=== PATIENT | male | born 1965 | race Caucasian/White ===

== ENCOUNTER 2017-06-17 11:29 | Observation (INO) | payer SELFPAY ==
[2017-06-16 16:36] VITALS: Ht 180.3 cm; Wt 104.3 kg
[~2017-06-17] VITALS: Ht 180.3 cm; Wt 104.3 kg
[2017-06-17] VITALS (8 sets, daily range): BP systolic 109–160; BP diastolic 64–95; PULSE 66–92; TEMP 36.3–36.9; O2SAT 89–95
--- NOTE | 2017-06-17 07:15 | History & Physical Bridge Note ---
H&P Re-Evaluation Bridge Note: I have examined the patient, reviewed the History & Physical and in the interval since the performance of the History & Physical I have noted the following changes of clinical significance: No changes noted
[~2017-06-17 11:29] MED LIST: BUPIVACAINE 0.5 % 5 MG/1 ML PF 10ML VIAL ONE; CAL1CHW4 PO; CEFAZOLIN IV 1,000 MG in SYRINGE 0 ML IV SCH; IBUP-1428 PO; LACTATED RINGER'S 1000ML 1,000 ML IV SCH; OXYC1TAB3 PO; PATIENT'S ALLERGY INFO NEEDS ENTERED SCH; PATIENT'S HEIGHT AND/OR WEIGHT NEEDED SCH
--- NOTE | 2017-06-17 11:57 | History and Physical ---
History & Physical Date Jun 17, 2017. Chief Complaint Right lower leg pain History of Present Illness The patient is a 52 year male who injured his right lower extremity approximately 1 week ago when he slipped on ice. He was seen at [facility] ED where xrays showed a distal tibia fracture. He was placed in a splint and referred to our office for evaluation. A CT scan was ordered and pt is scheduled for ORIF distal tibia vs IM tibial nail Past Medical/Surgical History Denies Additional History Hepatic Disease: No Endocrine Disorder: No Kidney Disease: No Hypertension: No Heart Disease: No Bleeding Tendencies: No Infectious Diseases: No Allergies Coded Allergies: No Known Allergies (Unverified , 06/16/17) Home Medications Scheduled PRN Toni Carb & Mag Hydrox-Simeth (Rolaids Advanced 1000-200-40 mg), 2 TAB PO Q8 PRN for Heartburn Ibuprofen (Motrin), 800 MG PO Q8H PRN for Pain Oxycodone Immediate Rel Tab (Roxicodone Ir), 1-2 TAB PO Q4H PRN for Pain Physical Examination Skin: warm/dry Eyes: normal inspection, EOMI ENT: normal ENT inspection Head: normocephalic, atraumatic Neck: supple, no adenopathy Respiratory/Chest: lungs clear Cardiovascular: regular rate, rhythm Abdomen / GI: normal bowel sounds, non tender Extremities: + pertinent finding (Right lower leg in orthoglass splint) Addiitonal Comments: Xrays and CT scan: mildly displaced, angulated oblique distal tibia fracture with longitudinal fracture line distally Diagnosis Displaced right distal tibia fracture Plan of Treatment ORIF right distal tibia vs IM tibial nail
[2017-06-17] MEDS ORDERED: CEFAZOLIN 2000MG IV PUSH 15 ML IV SCH (12:00)
[2017-06-17] MEDS ORDERED: CEFAZOLIN SOD 2000MG/15 ML IV PUSH IV ONE (12:11)
[2017-06-17] MEDS ORDERED: PROPOFOL IV EMULSION 10 MG/ML 20 ML VIAL IV ONE (12:57)
[2017-06-17] MEDS ORDERED: ONDANSETRON INJ 2 MG/ML 2 ML VIAL ONE (12:57)
[2017-06-17] MEDS ORDERED: DEXAMETHASONE SOD INJ 4 MG/ML VIAL ONE (12:57)
[2017-06-17] MEDS ORDERED: FENTANYL CITRATE INJ 50 MCG/1 ML 2 ML VIAL ONE ×2 (12:57→15:19)
[2017-06-17] MEDS ORDERED: MIDAZOLAM HCL 1 MG/ML 2ML VIAL ONE ×2 (12:57→13:47)
[2017-06-17] MEDS ORDERED: LIDOCAINE HCL 2% 2 ML VIAL (20MG/ML) ONE (12:57)
[2017-06-17] MEDS ORDERED: KETOROLAC TROMETHAMINE 30 MG/ML VIAL IV. PRN (14:00)
[2017-06-17] MEDS ORDERED: LABETALOL HCL IV 5 MG/ML 20ML IV PRN (14:00)
[2017-06-17] MEDS ORDERED: ONDANSETRON INJ 2 MG/ML 2 ML VIAL IV PRN ×2 (14:00→15:30)
[2017-06-17] MEDS ORDERED: HYDROmorphone INJ 2 MG/ML SYR/VIAL IV PRN (14:00)
[2017-06-17] MEDS ORDERED: ATROPINE SULFATE 0.1 MG/ML 5ML SYR IV PRN (14:00)
[2017-06-17] MEDS ORDERED: BACITRACIN 50000 UNIT VIAL ONE (14:20)
[2017-06-17] MEDS ORDERED: BUPIVACAINE/EPINEPHRINE 0.5% MPF 1:200,000 30 ML VIAL ONE (14:20)
[2017-06-17] MEDS ORDERED: NEOSTIGMINE METHYLSULFATE 5 MG/5 ML SYR ONE (15:02)
[2017-06-17] MEDS ORDERED: ROCURONIUM BROMIDE 10 MG/ML 5 ML VIAL IV ONE (15:02)
[2017-06-17] MEDS ORDERED: LARYING-O-JET KIT (LTA) ONE (15:02)
[2017-06-17] MEDS ORDERED: GLYCOPYRROLATE INJ 0.2 MG/ML VIAL ONE (15:02)
[2017-06-17] MEDS ORDERED: BISACODYL 10 MG SUPP PR PRN (15:30)
[2017-06-17] MEDS ORDERED: METOCLOPRAMIDE HCL INJ 5 MG/ML 2 ML VIAL IV PRN (15:30)
[2017-06-17] MEDS ORDERED: ALUMINUM/MAGNESIUM/SIMETH (MAALOX MAX) 30 ML UDC PO PRN (15:30)
[2017-06-17] MEDS ORDERED: MAGNESIUM HYDROXIDE SUSP 30 ML UDC PO PRN (15:30)
[2017-06-17] MEDS ORDERED: ZOLPIDEM TARTRATE 5 MG TAB PO PRN (15:30)
[2017-06-17] MEDS ORDERED: MoRPHine SULFATE 2 MG/ML CARP IV PRN (15:30)
--- NOTE | 2017-06-17 15:59 | [facility] Post Operative Brief Note ---
Immediate Operative Summary Operative Date Jun 17, 2017. Pre-Operative Diagnosis Displaced right distal tibia fracture Post-Operative Diagnosis Displaced right distal tibia fracture Procedure(s) Performed Right Intramedullary Tibial Nail Surgeon Dr. Patino Grinder Dresser Surgeon(s) Hoang Rodrigues PA-C Estimated Blood Loss 100 ml Findings Consistent with Post-Op Diagnosis Specimens None Per Surgeon Anesthesia Type MAC Spinal Regional Disposition Accompanied Pt To Recover: no Disposition: Recovery Room / PACU
--- NOTE | 2017-06-17 16:27 | DIAGNOSTIC IMAGING REPORT ---
R TIBIA/FIBULA 2 VIEWS ROUTINE CLINICAL HISTORY: 52 years-old Male presenting with ORIF RIGHT ANKLE FX VS. TIBIAL NAIL. TECHNIQUE: 4 fluoroscopic spot image(s) obtained as part of an intraoperative procedure. COMPARISON: None. FINDINGS/IMPRESSION: Intramedullary nail and interlocking screw fixation of the tibia extending from the proximal metaphysis to the distal metaphysis across the obliquely oriented distal metaphyseal fracture. Minimal residual anterior displacement of the distal fracture fragment relative to the proximal fracture fragment. Minimal medial displacement of the distal fracture fragment also noted. No significant angulation. Ankle mortise grossly intact. Please see surgical report for further details. Fluoroscopy dosage (mGy): 3.92. Fluoroscopy time: 140.2 seconds. Number of fluoroscopic spot images: 4. Electronically signed by: Davy Sandoval M.D. 06/17/2017 4:26 PM Dictated Date/Time: 06/17/2017 4:25 PM
--- NOTE | 2017-06-17 17:15 | Anesthesiology Progress Note ---
Anesthesia Post Op Note Date & Time Jun 17, 2017 at 17:15 Vital Signs Pain Intensity: 0 Vital Signs Past 12 Hours Date Time Temp Pulse Resp B/P (MAP) Pulse Ox O2 Delivery O2 Flow Rate FiO2 06/17/17 17:10 88 20 131/72 93 Oxymask 3 06/17/17 17:00 36.4 85 20 141/63 93 Oxymask 3 06/17/17 16:50 88 20 132/72 92 Oxymask 5 06/17/17 16:40 90 20 152/86 92 Oxymask 10 06/17/17 16:32 36.5 91 20 162/88 96 Oxymask 10 06/17/17 11:54 36.7 92 18 160/95 95 Room Air Notes Mental Status: alert / awake / arousable, participated in evaluation Pt Amnestic to Procedure: Yes Nausea / Vomiting: adequately controlled Pain: adequately controlled Airway Patency, RR, SpO2: stable & adequate BP & HR: stable & adequate Hydration State: stable & adequate Anesthetic Complications: no major complications apparent
--- NOTE | 2017-06-17 17:47 | DIAGNOSTIC IMAGING REPORT ---
R TIBIA/FIBULA 2 VIEWS ROUTINE CLINICAL HISTORY: 52 years-old Male presenting with post-op IM nail. TECHNIQUE: Frontal and lateral views of the right lower leg were obtained. COMPARISON: Fluoroscopic images performed earlier the same day. FINDINGS: Intramedullary nail and interlocking screw fixation of the tibia across the distal tibial metadiaphyseal fracture. The fracture plane is obliquely/spirally oriented extending from the anterior lateral cortex proximally to the posterior medial cortex distally. There is 4 mm of diastases at the fracture plane. 5 mm of lateral displacement of the distal fracture fragment. 3 mm of anterior displacement of the distal fracture fragment. No significant angulation. Skin eren noted both proximally and distally in the lower leg. Diffuse soft tissue swelling suspected. The fibula as well as the tibiofibular articulations appear congruent. Ankle mortise grossly congruent. However, suspected nondisplaced fracture of the posterior aspect of the head of the fibula evident on lateral view. IMPRESSION: 1. Internal fixation of the tibia for the obliquely/bilateral oriented distal metadiaphyseal fracture. Residual diastases is a fracture plane as well as minimal lateral and anterior displacement as above. 2. Nondisplaced fracture of the posterior aspect of the head of the fibula. Electronically signed by: Davy Sandoval M.D. 06/17/2017 5:46 PM Dictated Date/Time: 06/17/2017 5:43 PM
[2017-06-17] MEDS: D5W AND 1/2NSS + 20MEQ KCL 1,000 ML IV SCH (18:45)
[2017-06-17] MEDS: ACETAMINOPHEN 500 MG TAB PO SCH (18:45)
[2017-06-17] MEDS: FERROUS GLUCONATE 324 MG TAB PO SCH (18:51)
--- NOTE | 2017-06-17 19:34 | OPERATIVE REPORT ---
DATE OF OPERATION: 06/17/2017 PREOPERATIVE DIAGNOSIS: Displaced right tibia metaphyseal fracture distally. POSTOPERATIVE DIAGNOSIS: Displaced right tibia metaphyseal fracture distally. PROCEDURE: Closed locked nailing right tibial distal shaft fracture. SURGEON: Dr. Patino. MIG WELDER: GWENDOLYN Lou. Mr. Rodrigues was utilized throughout the procedure and was essential in all stages including prepping, draping, positioning, rn surgical pcu, wound closure, and dressing and splint application. ANESTHESIA: Spinal. COMPLICATIONS: None. DESCRIPTION OF PROCEDURE: The patient's right leg was prepped and draped in usual sterile manner. A tourniquet was applied but was not inflated. A longitudinal incision was made over the medial border of the patella tendon. Incision through the capsule was made and a drill tipped guidewire was placed at appropriate entry point, anterior to the anterior cruciate ligament footprint, between the tibial spines. This was overdrilled using the canal opening drill and a beaded tipped guidewire was placed. The bead was taken to the epiphyseal scar traversing the fracture fragment in both AP and lateral planes. The guidewire was measured and a 360 mm nail was chosen the size to be used. Sequential reamings were taken up to 11.5 which gave a high level of chatter in the diaphysis and a 10 x 360 mm nail was inserted. This was locked proximally using the outrigger using 2 locking screws. Distal locking was carried out using 3 distal locking screws, 1 AP and 2 mediolateral. This nearly anatomically fixed the fracture. The wounds were irrigated and the wounds were closed using 0 Dexon for the capsule, 2-0 Dexon and eren. Sterile dressing of Adaptic, 4 x 4's, sterile Webril, and a posterior plaster splint was applied. The patient tolerated the procedure well. I attest to the content of the Intraoperative Record and any orders documented therein. Any exception s are noted below.
[2017-06-17] MEDS: OXYCODONE HCL IR 5 MG TAB (IMMEDIATE RELEASE) PO PRN (19:52)
[2017-06-17] MEDS: ASPIRIN 81 MG ECTAB PO SCH (21:12)
[2017-06-17] MEDS ORDERED: IV FLUIDS COMPLETED PRN (21:30)
[2017-06-17] MEDS: CEFAZOLIN IV 2,000 MG in SYRINGE 0 ML IV SCH (21:40)
[2017-06-18] MEDS: ACETAMINOPHEN 500 MG TAB PO SCH ×2 (02:00→10:19)
[2017-06-18 02:37] VITALS: BP 119/72; PULSE 72; TEMP 36.7; O2SAT 97
[2017-06-18] MEDS: D5W AND 1/2NSS + 20MEQ KCL 1,000 ML IV SCH ×2 (03:51→14:00)
[2017-06-18] MEDS: OXYCODONE HCL IR 5 MG TAB (IMMEDIATE RELEASE) PO PRN ×3 (03:53→14:25)
[2017-06-18] MEDS: CEFAZOLIN IV 2,000 MG in SYRINGE 0 ML IV SCH (05:45)
[2017-06-18 07:15] VITALS: BP 112/65; PULSE 64; TEMP 36.8; O2SAT 96
[2017-06-18 07:21] LABS: HEMATOCRIT 43.6 % (42-52); HEMOGLOBIN 14.4 g/dL (14.0-18.0); MEAN CELL VOLUME 95.4 fL (80-100); MEAN CORPUSCULAR HEMOGLOBIN 31.5 pg (25-34); MEAN PLATELET VOLUME 9.5 fL (7.4-10.4); PLATELET COUNT 271 K/uL (130-400); RED CELL DISTRIBUTION WIDTH CV 13.3 % (11.5-14.5); RED CELL DISTRIBUTION WIDTH SD 46.4 fL (36.4-46.3); WHITE BLOOD COUNT 16.86 K/uL (4.8-10.8)
[2017-06-18 07:40] LABS: CALCIUM 8.1 mg/dl (8.5-10.1); CREATININE 1.03 mg/dl (0.60-1.40); POTASSIUM 4.3 mmol/L (3.5-5.1)
[2017-06-18 07:41] VITALS: O2SAT 93
[2017-06-18] MEDS: ASPIRIN 81 MG ECTAB PO SCH (08:39)
[2017-06-18] MEDS: FERROUS GLUCONATE 324 MG TAB PO SCH ×2 (08:39→13:43)
[2017-06-18] MEDS ORDERED: PANTOprazole SOD 40 MG TAB PO SCH (09:00)
[2017-06-18] MEDS ORDERED: MULTIVITAMIN TAB PO SCH (09:00)
--- NOTE | 2017-06-18 09:56 | Orthopedic Progress Note ---
Orthopedic Progress Note Date of Service Jun 18, 2017. Subjective Post OP Day: 1 Reports: feeling well, Denies: complaints Objective calves soft nontender, N/V intact, splint C/D/I, dressing C/D/I, A&O x3, toes mobile Date Time Temp Pulse Resp B/P (MAP) Pulse Ox O2 Delivery O2 Flow Rate FiO2 06/18/17 07:41 93 Room Air 06/18/17 07:30 Room Air 06/18/17 07:15 36.8 64 17 112/65 (81) 96 Mask 3.0 06/18/17 02:37 36.7 72 18 119/72 (88) 97 Oxymask 3.0 06/17/17 23:50 36.7 66 18 116/68 (84) 95 Oxymask 3.0 06/17/17 23:10 95 Oxymask 3.0 06/17/17 21:06 36.5 82 18 109/64 (79) 89 Room Air 06/17/17 19:50 36.6 69 16 123/70 (87) 90 Room Air 06/17/17 18:20 36.3 77 18 124/81 (95) 92 Oxymask 3.0 06/17/17 17:46 36.7 85 18 125/80 (95) 94 4.0 06/17/17 17:25 Oxymask 3.0 06/17/17 17:25 Oxymask 3.0 06/17/17 17:20 36.9 79 18 130/78 (95) 92 Oxymask 3.0 06/17/17 17:10 88 20 131/72 93 Oxymask 3 06/17/17 17:00 36.4 85 20 141/63 93 Oxymask 3 06/17/17 16:50 88 20 132/72 92 Oxymask 5 06/17/17 16:40 90 20 152/86 92 Oxymask 10 06/17/17 16:32 36.5 91 20 162/88 96 Oxymask 10 06/17/17 11:54 36.7 92 18 160/95 95 Room Air Laboratory Results 24 Hours: Test 06/18/17 06:44 Hematocrit 43.6 % Hemoglobin 14.4 g/dL Assessment & Plan Assessment: POD 1 s/p Right IM Nailing Distal Tibia Fx Plan: PT/OT - NWB RLE Plan for dc home today vs tomorrow. pending PT results. Inhouse Planning Pain Management: Morphine, Oxy IR DVT Prophylaxis: TEDs, SCDs, ASA Discharge Planning Discharge Planning: home
--- NOTE | 2017-06-18 10:59 | Anesthesiology Progress Note ---
Anesthesia Post Op Note Date & Time Jun 18, 2017 at 10:59 Vital Signs Pain Intensity: 5.0 Vital Signs Past 12 Hours Date Time Temp Pulse Resp B/P (MAP) Pulse Ox O2 Delivery O2 Flow Rate FiO2 06/18/17 07:41 93 Room Air 06/18/17 07:30 Room Air 06/18/17 07:15 36.8 64 17 112/65 (81) 96 Mask 3.0 06/18/17 02:37 36.7 72 18 119/72 (88) 97 Oxymask 3.0 06/17/17 23:50 36.7 66 18 116/68 (84) 95 Oxymask 3.0 06/17/17 23:10 95 Oxymask 3.0 Notes Mental Status: alert / awake / arousable, participated in evaluation Pt Amnestic to Procedure: Yes Nausea / Vomiting: adequately controlled Pain: adequately controlled Airway Patency, RR, SpO2: stable & adequate BP & HR: stable & adequate Hydration State: stable & adequate Anesthetic Complications: no major complications apparent
[2017-06-18] MEDS ORDERED: OXYC1TAB3 PO (13:45)
[2017-06-18] MEDS ORDERED: ACET-24 PO (13:45)
[2017-06-18] MEDS ORDERED: ASPEC81 PO (13:45)
--- NOTE | 2017-06-18 14:04 | Discharge Instructions ---
Discharge Instructions Date of Service Jun 18, 2017. Admission Reason for Admission: Unspecified Fracture Of Lower End Of Right Tibia, Discharge Discharge Diagnosis / Problem: Right Distal Tibia Fracture Discharge Goals Goal(s): Decrease discomfort, Improve function, Increase independence Activity Recommendations Activity Limitations: per Instructions/Follow-up section Weightbearing Status: Right non-weightbearing . Instructions / Follow-Up Instructions / Follow-Up You will need to be nonweightbearing on the right leg until you see Dr Patino back in the office. Use a walker or crutches for ambulation. Keep leg elevated when at rest on 1 or 2 pillows You can do gentle range of motion of the right knee while lying down. Ice pack to knee or ankle as needed. Keep splint clean and dry Increase your activity as able Call the office if you notice increased swelling , pain , numbness in the toes or foot. Follow up with Dr Patino or Jose Harrison PA-C in [place] Wednesday06/21/17 at 12: 45pm for dressing change. Call with any questions [phone] Current Hospital Diet Patient's current hospital diet: Regular Diet Discharge Diet Recommended Diet: Regular Diet Procedures Procedures Performed: Right Intramedullary Tibial Nail Pending Studies Studies pending at discharge: no Medical Emergencies . Who to Call and When: Medical Emergencies: If at any time you feel your situation is an emergency, please call 911 immediately. . Non-Emergent Contact Non-Emergency issues call your: Surgeon Call Non-Emergent contact if: temperature is above 101.5, your pain is not controlled, your pain is worsening, wound has increased drainage, wound has increased redness . "Provider Documentation" section prepared by Hoang Rodrigues. . VTE Core Measure Inpt VTE Proph given/why not?: Other Anticoagulation, T.E.D. Stockings, SCD's [place] Drug Monitoring Program Search Results: patient reviewed within database, no issues identified
[2017-06-18 14:18] VITALS: BP 112/65; PULSE 64; TEMP 36.8; O2SAT 93
[2017-06-21] MEDS ORDERED: CEFAZOLIN 1000MG IV PUSH 7.5 ML IV SCH (06:00)
--- NOTE | 2017-06-23 13:46 | DISCHARGE SUMMARY ---
DISCHARGE DIAGNOSIS: Right distal tibia fracture. CONSULTS: None. COMPLICATIONS: None. PROCEDURES: IM rodding, right tibia by Dr. Patino on 06/17/2017. BRIEF HISTORY: As dictated in history and physical. HOSPITAL SUMMARY: The patient was admitted on the above noted date and had the above known surgery performed which he tolerated well. On his first postoperative day, he was feeling well and had no complaints. Calves were soft, nontender, neurovascularly intact. Splint was clean, dry and intact. Dressings clean, dry and intact, toes were mobile and vital signs were stable. He was afebrile. Hemoglobin was 14.4 and he was started on physical therapy protocol, nonweightbearing on right lower extremity and was continued on pain management and DVT prophylaxis. Later that afternoon, he was progressing with his physical therapy and was otherwise remaining stable. Vital signs were stable and he remained afebrile and it was felt that he could be discharged to home. For further review, please see chart. LABORATORY AND X-RAY DATA: As per chart. DISCHARGE INSTRUCTIONS: The patient was discharged to home in satisfactory condition on 06/18/2017. DIET: Regular. ACTIVITY: Nonweightbearing, right lower extremity. FOLLOWUP: Follow instructions as noted and follow up Dr. Patino or Jose Harrison PA-C at [place] on 06/21/2017 for dressing change. For further review, please see chart. DISCHARGE INSTRUCTIONS: The patient was discharged to home with acetaminophen 1000 mg p.o. q. 8 hours for 14 days, aspirin 81 mg p.o. b.i.d. Continue home meds including OxyIR 1-2 tabs p.o. q. 4 hours p.r.n., Rolaids p.r.n. Stop taking ibuprofen.
== END 2017-06-18 16:30 | disposition home or self-care (01) ==
LOC: C.ACU 11:29 → C.3E 15:34 → ENRESERV 16:56
DX: S82.391A Other fracture of lower end of right tibia, initial encounter for closed fracture (principal); W00.0XXA Fall on same level due to ice and snow, initial encounter; Z90.89 Acquired absence of other organs